=== PATIENT | female | born 1960 | race Caucasian/White ===

== ENCOUNTER 2016-10-21 18:53 | Emergency (ER) | payer OTHER ==
[~2016-10-21] VITALS: Ht 157.5 cm; Wt 59.1 kg
[2016-10-21 19:01] VITALS: BP 170/84; PULSE 78; RESP 16; O2SAT 99
[2016-10-21] MEDS ORDERED: Ondansetron 8 mg ODT Tablet ONE (19:08)
[2016-10-21] MEDS ORDERED: 0.9% Sodium Chloride 1,000 ML IV ONE (20:27)
--- NOTE | 2016-10-21 20:29 | ED.REPORT ---
HPI-Abd Pain F 40 and Over Date of Service Oct 21, 2016 ED Provider: Orlando Bennett MD Pt is a 56 year old female with a history of recurrent bowel obstructions (x6) who presents to the ED complaining of progressively worsening abdominal pain onset 15:00 today. She c/o associated nausea and vomiting. She denies hematemesis, diarrhea, constipation, cough, and fever. Her last BM was at 18:00 today. Pt states that she believes that she has a bowel obstruction due to experiencing similar symptoms previously. Nursing Notes Stated Complaint: BOWEL OBSTRUCTION Chief Complaint: Female Abdominal Pain Nursing Notes Reviewed: Yes Allergies: Coded Allergies: morphine (Verified Allergy, Unknown, 10/21/16) General Time Seen by MD: 20:27 Chief Complaint Abdominal pain Hx Obtained From: Patient Arrived By: Walk-in Sudden in Onset?: No Onset Occurred: 5 - 8 hours ago Symptom Duration: Since onset Progression since Onset: Gradually worsening Location: : Diffuse Quality: Painful Radiation: : Does not radiate Severity: Current: Moderate Severity: Maximum: Moderate Recent Healthcare: No recent doctor visit, No recent hospitalization Similar Sx Previous: Yes Past Medical History Past Medical History Bowel obstruction (x6) Past Surgical History Nephrectomy Reports: Hysterectomy Smoking History Unknown if Ever Smoker Social History Other Social History: Good social support Ambulatory Status Independent Review of Systems Constitutional: Denies: Fever Respiratory: Denies: Non-productive cough GI: Reports: Abdominal pain, Nausea, Vomiting, Denies: Constipation, Diarrhea, Hematemesis Complete sys rev & neg: except as marked. Physical Exam Vital Signs Vital Signs (First) Date Time Temp Pulse Resp B/P Pulse Ox O2 Delivery O2 Flow Rate FiO2 10/21/16 19:01 36.4 78 16 170/84 99 Room Air Initial VS: Reviewed Head / Eyes: Atraumatic, Normocephalic Neck: Supple, Full range of motion Extremities: Vascular intact, Neuro intact Skin: Warm, Dry, No cyanosis Neurologic: Alert, Oriented, Nonfocal Psychiatric: Mood/affect normal, Behavior normal General/Constitutional: Awake, Alert Respiratory / Chest: Atraumatic, Breath sounds NL, Breath sounds = bilat Cardiovascular: Heart rate NL, Regular rhythm, Heart sounds NL, No murmurs Abdomen: No guarding, No rebound Tenderness/Guarding/Rebound: Positive: Tender diffuse Back: Atraumatic, Full range of motion Interpretation & Diagnostics Lab Results Interpretation Result Diagram: 10/21/16 2030 10/21/16 2030 Test 10/21/16 20:30 10/21/16 22:30 White Blood Count 13.9th/mm3 (3.8-10.1) Red Blood Count 4.41mil/mm3 (3.90-5.20) Hemoglobin 13.7g/dL (12.0-15.6) Hematocrit 39.9% (35.0-46.0) Mean Corpuscular Volume 90.5fL (81-100) Mean Corpuscular Hemoglobin 31.1pg (27.0-35.0) Mean Corpuscular Hemoglobin Concent 34.3% (32.0-37.0) Red Cell Distribution Width 12.3% (12.3-15.4) Platelet Count 206bil/L (150-400) Neutrophils (%) (Auto) 84.9% (40-74) Lymphocytes (%) (Auto) 8.1% (14-46) Monocytes (%) (Auto) 5.7% (4-12) Eosinophils (%) (Auto) 0.8% (0-5) Basophils (%) (Auto) 0.2% (0-3) Sodium Level 139mEq/L (134-144) Potassium Level 5.1mEq/L (3.5-5.2) Chloride Level 104mEq/L (97-108) Carbon Dioxide Level 21mmol/L (18-29) Blood Urea Nitrogen 45mg/dL (6-24) Creatinine 1.68mg/dL (0.57-1.00) Estimat Glomerular Filtration Rate 45mL/min (>59) Glucose Level 142mg/dL (60-99) Calcium Level 9.9mg/dL (8.5-10.1) Magnesium Level 1.9mg/dL (1.6-2.6) Total Bilirubin 0.6mg/dL (0.0-1.2) Aspartate Amino Transf (AST/SGOT) 26U/L (0-50) Alanine Aminotransferase (ALT/SGPT) 27U/L (0-32) Alkaline Phosphatase 106U/L (25-150) Total Protein 7.7g/dL (6.4-8.4) Albumin 4.7g/dL (3.4-5.0) Lipase 52U/L (13-60) Hold Shi Top Tube Received (Received) Urine Color Yellow (YELLOW) Urine Appearance Clear (CLEAR,HAZY) Urine pH 5.5 (5.0-8.0) Urine Specific [place] 1.025 (1.003-1.035) Urine Protein 100mg/dL (NEG,TRACE) Urine Glucose (UA) Negativemg/dL (NEGATIVE) Urine Ketones Tracemg/dL (NEGATIVE) Urine Occult Blood Trace (NEGATIVE) Urine Nitrite Negative (NEGATIVE) Urine Bilirubin Negative (NEGATIVE) Urine Urobilinogen Normalmg/dL (NORMAL) Urine Leukocyte Esterase Negative (NEGATIVE) Urine RBC 0-2/hpf (0-2) Urine WBC 0-5/hpf (0-5) Urine Epithelial Cells Few/hpf (NONE-MOD) Urine Crystals None seen (NONE SEEN) Urine Bacteria Few/hpf (NONE-FEW) Urine Hyaline Casts None/lpf (NONE) Urine Granular Casts None seen (NONE SEEN) Urine Waxy Casts None seen (NONE SEEN) Urine Red Blood Cell Casts None seen (NONE SEEN) Urine White Blood Cell Casts None seen (NONE SEEN) Urine Mucus None seen (None Seen) Urine Trichomonas None seen (NONE SEEN) Urine Yeast None (NONE SEEN) Urinalysis Comment None Urine Culture Reflexed Not indicated CT Abd / Pelvis Interpretation IMPRESSION: Loops of fluid-filled small bowel, some of which are slightly distended, in the proper clinical setting an enteritis should be condsidered. Transmitted to the ED at 23:19 by William Krishnamurthy M.D. Study type: Abdominal CT no contrast Interpretation / Wet Read by: Interpret - Radiologist Re-Eval/Medical Decision Med Decision/Clinical Course 56-year-old female history of multiple abdominal surgeries and bowel obstructions in the past presenting with nausea vomiting and crampy abdominal pain since earlier this evening. She is having BMs. She believes she has a bowel obstruction. Her labs are unremarkable. She felt much better after antiemetics and IV fluids. CT abdomen and pelvis with oral contrast shows no evidence of obstruction and does show possible enteritis. Possibly viral etiology. Patient felt much better . She will be discharged home with return precautions. Source of Hx: Old records Re-Evaluation/Progress : Time of Eval: 00:31 Patient Status: Condition improved Re-Evaluation/Progress Note: Pt rechecked. Informed pt of plan for discharge. Pt understands and agrees with plan for discharge. F/U instructions and RTER warnings given. All questions addressed. Counseled Regarding: Diagnosis, Lab results, Need for follow-up, When/why to return to ED Discharge & Departure Primary Impression: Gastroenteritis Disposition: Home Discharge Condition All VS Reviewed: Yes Condition: Stable Patient Instructions: Gastroenteritis (ED) Additional Instructions: Your labs are reassuring. You do not have a bowel obstruction. You have gastroenteritis. Drink plenty of fluids. Return to the Emergency Department if you have persisting vomiting tomorrow, worsening abdominal pain, fever, or any other symptoms. Referrals: STEPHEN (PCP) [place] Attestation Portions of this note were transcribed by Lyla Ch. I, Dr. Bennett personally performed the history, physical exam and medical decision-making; I reviewed and confirmed the accuracy of the information in the transcribed note. Signed by: Erik Harden, 10/21/16. copies to: Orlando Emery MD Oct 21, 2016 20:29 Lyla Borrego Oct 21, 2016 21:00
[2016-10-21] MEDS ORDERED: Ondansetron 2 mg/mL 2 mL Inj IVPUSH PRN (20:30)
[2016-10-21 20:50] LABS: BASOPHILS % (AUTO) 0.2 % (0-3); EOSINOPHILS % (AUTO) 0.8 % (0-5); MONOCYTES % (AUTO) 5.7 % (4-12); Mean Corpuscular Hemoglobin 31.1 pg (27.0-35.0); Mean Corpuscular Volume 90.5 fL (81-100); NEUTROPHILS % (AUTO) 84.9 % (40-74); Platelet Count 206 bil/L (150-400)
[2016-10-21] MEDS ORDERED: Iohexol 300 mg/mL 30 mL Inj PO ONE (21:00)
[2016-10-21 21:10] LABS: Magnesium 1.9 mg/dL (1.6-2.6)
[2016-10-21] MEDS: HYDROmorphone 0.5 mg/0.5 mL iSecure Syringe IVPUSH PRN ×3 (21:19→23:14)
[2016-10-21 23:24] LABS: APPEARANCE,URINE CLEAR (CLEAR,HAZY); COLOR,URINE YELLOW (YELLOW); OCCULT BLOOD,URINE TRACE (NEGATIVE); PH,URINE 5.5 (5.0-8.0); UROBILINOGEN,URINE NORMAL (NORMAL)
[2016-10-22] MEDS ORDERED: _Ondansetron ODT 4 mg Tablet PO PRN (00:35)
[2016-10-22 00:48] VITALS: BP 124/56; PULSE 75; RESP 16; O2SAT 99
--- NOTE | 2016-10-22 10:19 | DRSVH ---
PROCEDURE: CT ABDOMEN AND PELVIS WITHOUT CONTRAST ([id number]) INDICATIONS: abd pain h/o bowel obstructions. oral contrast TECHNIQUE: After the administration of oral contrast, 5 mm thick sections acquired from the diaphragms to the sy mphysis. 5 mm coronal and sagittal reformats were performed. For radiation dose reduction, the foll owing was used: automated exposure control, adjustment of mA and/or kV according to patient size. COMPARISON: None. FINDINGS: Image quality: Excellent. ABDOMEN: Lung bases: Lung bases are clear. Heart size is normal. Solid organs: A.3.4 cm cyst is noted in the left hepatic lobe. Liver and spleen are normal in size. Gallbladder is normal. Pancreas is normal in size. No adrenal nodules. Left kidney is absent. Ther e is compensatory hypertrophy of right kidney. Renal cortical cysts are noted. Peritoneum and bowel: There is a surgical suture in cecum. Small bowel loops are slightly prominent in caliber measuring up to 2.5 cm. There is no transitional point. Appendix is absent. A trace amoun t of free fluid is present in the right lower quadrant. No free air. Nodes and vessels: No retroperitoneal or mesenteric adenopathy by size criteria. Aorta and inferior vena cava are normal in size. Miscellaneous: No ventral hernias. PELVIS: Genitourinary: Bladder wall thickness is normal. Miscellaneous: No inguinal hernias or adenopathy. Bones: No suspicious bony lesions. No vertebral body compression fractures. IMPRESSION: 1. Fluid filled, slightly prominent caliber small intestine. There is a trace amount of free fluid in the right lower quadrant. Appendix is absent. No bowel thickening. No transitional point. The CT fin ding could be secondary to nonspecific enteritis in the proper clinical setting. 2. Solitary right kidney with compensatory hypertrophy. Right renal cysts are present. No significant discrepancy with the industrial x ray operator radiology preliminary report. Dictated by: Cipriano Valladares M.D. on 10/22/2016 at 10:09 Approved by: Cipriano Valladares M.D. on 10/22/2016 at 10:17
== END 2016-10-22 01:02 | disposition home or self-care (01) ==
LOC: SED 18:53
DX: K52.9 Noninfective gastroenteritis and colitis, unspecified (principal); Z87.19 Personal history of other diseases of the digestive system; Z90.710 Acquired absence of both cervix and uterus; Z90.5 Acquired absence of kidney; Z88.5 Allergy status to narcotic agent
CPT/HCPCS: 36415; 74176; 80053; 81000; 83690; 83735; 85025; 96361; 96374; 96375; 96376; 99285; J1170; J2405; J7030